=== PATIENT | female | born 1945 | race Hispanic/Latino ===

== ENCOUNTER 2019-06-21 12:26 | Emergency (ER) | payer MEDICARE ==
[2019-06-21] MEDS ORDERED: MORPHINE 4 MG/1 ML INJ IV ONE ×2 (13:32→14:34)
[2019-06-21] MEDS ORDERED: KETOROLAC 30 MG/1 ML INJ IV ONE (13:32)
[2019-06-21] MEDS ORDERED: ONDANSETRON 4 MG/2 ML INJ IV ONE (13:32)
--- NOTE | 2019-06-21 14:41 | XRay Report ---
RIGHT WRIST 2 VIEWS INDICATION / CLINICAL INFORMATION: Right wrist pain after fall. COMPARISON: None available. FINDINGS: This exam is limited by the lack of a true lateral view. BONES and JOINT(S): There is a transverse fracture through the distal radial metaphysis with overlapp ing segments. An avulsion fracture of the ulnar styloid is also noted. No dislocation is seen. There is generalized osteopenia without significant arthritis. SOFT TISSUES: No significant abnormality. ADDITIONAL FINDINGS: None. IMPRESSION: Right wrist fractures as above. Signer Name: Hay Welch MD Signed: 06/21/2019 2:36 PM Workstation Name: [id number]
--- NOTE | 2019-06-21 14:42 | XRay Report ---
RIGHT SHOULDER 1 VIEW INDICATION / CLINICAL INFORMATION: Right shoulder pain after fall. COMPARISON: None available. FINDINGS: This study is limited by lack of multiple views of the right shoulder. BONES and JOINT(S): Generalized osteopenia is seen with an impacted humeral neck fracture. No disloca tion is identified. No significant arthritis is seen. SOFT TISSUES: No significant abnormality. ADDITIONAL FINDINGS: None. IMPRESSION: Right humeral fracture as above. Signer Name: Hay Welch MD Signed: 06/21/2019 2:37 PM Workstation Name: [id number]
[2019-06-21] MEDS ORDERED: HYDROmorphone 1 MG/1 ML INJ IV ONE ×2 (15:19→16:02)
--- NOTE | 2019-06-21 15:36 | Emergency Department Report ---
ED Extremity Problem HPI - General Chief complaint: Extremity Injury, Upper Stated complaint: R ARM AND SHOULDER PAIN Time Seen by Provider: 06/21/19 13:13 Source: patient, EMS Mode of arrival: Stretcher Limitations: No Limitations - History of Present Illness Initial comments: Patient is a 74-year-old female who is presenting with right arm pain. Patient states she was walking to her front door and she tripped and fell. Patient reached out with outstretched hand. Patient has pain at the shoulder as well as the wrist. Patient is broken her right wrist in the past and did not receive surgery. Patient states pain is 9 out of 10 severity is worse with movement. Slightly better with rest. Severity scale (0 -10): 10 - Related Data Home Medications Medication Instructions Recorded Confirmed Last Taken Atorvastatin (Nf) [Lipitor] 10 mg PO QHS 03/30/13 01/21/14 01/20/14 Nortriptyline (Nf) [Pamelor (Nf)] 75 mg PO QDAY 03/30/13 01/21/14 01/20/14 Omeprazole [Prilosec] 40 mg PO QDAY 03/30/13 01/21/14 01/20/14 Losartan [Cozaar] 1 tab PO DAILY 08/24/13 01/21/14 01/20/14 Previous Rx's Medication Instructions Recorded Last Taken Type Clopidogrel [Plavix] 75 mg PO QDAY #30 tablet 04/02/13 01/18/14 Rx Donepezil [Aricept] 5 mg PO QHS #30 tablet 04/02/13 01/20/14 Rx Spironolactone [Aldactone] 25 mg PO QDAY #30 tablet 09/01/13 01/20/14 Rx Ibuprofen [Motrin 600 MG tab] 600 mg PO Q8H PRN #20 tablet 06/21/19 Unknown Rx Oxycodone HCl/Acetaminophen 1 each PO Q6HR PRN #12 tablet 06/21/19 Unknown Rx [Percocet 7.5/325 mg] Allergies Allergy/AdvReac Type Severity Reaction Status Date / Time No Known Allergies Allergy Verified 08/24/13 16:16 ED Review of Systems ROS: Stated complaint: R ARM AND SHOULDER PAIN Other details as noted in HPI Comment: All other systems reviewed and negative ED Past Medical Hx - Past Medical History Hx Hypertension: Yes Hx Heart Attack/AMI: No Hx Congestive Heart Failure: No Hx Deep Vein Thrombosis: No Hx Pulmonary Embolism: No Hx Renal Disease: No Hx Sickle Cell Disease: No Hx Arthritis: Yes (back) Hx Seizures: No Hx Kidney Stones: No Hx Asthma: No Hx COPD: No Hx Tuberculosis: No Hx Dementia: Yes (mild dementia) Hx HIV: No Additional medical history: crohns - Surgical History Hx Coronary Stent: No Hx Pacemaker: No Hx Internal Defibrillator: No Hx Appendectomy: Yes Hx Breast Surgery: Yes - Social History Smoking Status: Current Every Day Smoker - Medications Home Medications: Home Medications Medication Instructions Recorded Confirmed Last Taken Type Atorvastatin (Nf) [Lipitor] 10 mg PO QHS 03/30/13 01/21/14 01/20/14 History Nortriptyline (Nf) [Pamelor (Nf)] 75 mg PO QDAY 03/30/13 01/21/14 01/20/14 H istory Omeprazole [Prilosec] 40 mg PO QDAY 03/30/13 01/21/14 01/20/14 History Clopidogrel [Plavix] 75 mg PO QDAY #30 tablet 04/02/13 01/21/14 01/18/14 Rx Donepezil [Aricept] 5 mg PO QHS #30 tablet 04/02/13 01/21/14 01/20/14 Rx Losartan [Cozaar] 1 tab PO DAILY 08/24/13 01/21/14 01/20/14 History Spironolactone [Aldactone] 25 mg PO QDAY #30 tablet 09/01/13 01/21/14 01/20/14 Rx Ibuprofen [Motrin 600 MG tab] 600 mg PO Q8H PRN #20 tablet 06/21/19 Unknown Rx Oxycodone HCl/Acetaminophen 1 each PO Q6HR PRN #12 tablet 06/21/19 Unknown Rx [Percocet 7.5/325 mg] ED Physical Exam - General Limitations: No Limitations General appearance: alert, in no apparent distress - Head Head exam: Present: atraumatic, normocephalic - Eye Eye exam: Present: normal appearance, PERRL, EOMI - ENT ENT exam: Present: mucous membranes moist - Neck Neck exam: Present: normal inspection - Respiratory Respiratory exam: Present: normal lung sounds bilaterally. Absent: respiratory distress, wheezes, rales, rhonchi - Cardiovascular Cardiovascular Exam: Present: regular rate, normal rhythm. Absent: systolic murmur, diastolic murmur, rubs, gallop - GI/Abdominal GI/Abdominal exam: Present: soft, normal bowel sounds. Absent: distended, tenderness, guarding, rebound - Extremities Exam Extremities exam: Present: normal inspection - Back Exam Back exam: Present: normal inspection - Neurological Exam Neurological exam: Present: alert, oriented X3 - Psychiatric Psychiatric exam: Present: normal affect, normal mood - Skin Skin exam: Present: warm, dry, intact, normal color. Absent: rash ED Course Vital Signs 06/21/19 06/21/19 06/21/19 14:38 14:41 14:46 Temperature 98.1 F Pulse Rate 86 Respiratory 18 16 Rate Blood Pressure 161/76 [Left] O2 Sat by Pulse 98 97 97 Oximetry ED Medical Decision Making - Radiology Data Ordering Physician: DEYVI BHAGAT MD Date of Service: 06/21/19 Procedure(s): XR shoulder 1V RT Accession Number(s): [id number] cc: DEYVI BHAGAT MD Fluoro Time In Minutes: RIGHT SHOULDER 1 VIEW INDICATION / CLINICAL INFORMATION: Right shoulder pain after fall. COMPARISON: None available. FINDINGS: This study is limited by lack of multiple views of the right shoulder. BONES and JOINT(S): Generalized osteopenia is seen with an impacted humeral neck fracture. No dislocation is identified. No significant arthritis is seen. SOFT TISSUES: No significant abnormality. ADDITIONAL FINDINGS: None. IMPRESSION: Right humeral fracture as above. Signer Name: Hay Welch MD Signed: 06/21/2019 2:37 PM Workstation Name: [id number] Ordering Physician: DEYVI BHAGAT MD Date of Service: 06/21/19 Procedure(s): XR wrist 2V RT Accession Number(s): [id number] cc: DEYVI BHAGAT MD Fluoro Time In Minutes: RIGHT WRIST 2 VIEWS INDICATION / CLINICAL INFORMATION: Right wrist pain after fall. COMPARISON: None available. FINDINGS: This exam is limited by the lack of a true lateral view. BONES and JOINT(S): There is a transverse fracture through the distal radial metaphysis with overlapping segments. An avulsion fracture of the ulnar styloid is also noted. No dislocation is seen. There is generalized osteopenia without significant arthritis. SOFT TISSUES: No significant abnormality. ADDITIONAL FINDINGS: None. IMPRESSION: Right wrist fractures as above. Signer Name: Hay Welch MD Signed: 06/21/2019 2:36 PM Workstation Name: [id number] - Medical Decision Making Discussed the case with Dr. Bautista who did look at the patient's sounds. Patient's distal radius fracture likely is old. I did do a attempt a hematoma block and to see if I can get better alignment in the bowels were actually likely fused in a malunion position. Patient's proximal humeral fracture is new. Patient was placed in a shoulder immobilizer. Patient is given medication for pain control be discharged home follow-up with orthopedics. Critical care attestation.: If time is entered above; I have spent that time in minutes in the direct care of this critically ill patient, excluding procedure time. ED Disposition Clinical Impression: Humeral surgical neck fracture Qualifiers: Encounter type: initial encounter Fracture type: closed Fracture morphology: 2- part Fracture alignment: nondisplaced Laterality: right Qualified Code(s): S42.224A - 2-part nondisplaced fracture of surgical neck of right humerus, initial encounter for closed fracture Wrist fracture Qualifiers: Encounter type: initial encounter Fracture type: closed Laterality: right Qualified Code(s): S62.101A - Fracture of unspecified carpal bone, right wrist, initial encounter for closed fracture Disposition: DC-01 TO HOME OR SELFCARE Is pt being admited?: No Does the pt Need Aspirin: No Condition: Stable Instructions: Arm Fracture in Adults (ED), Wrist Fracture in Adults (ED), RICE Therapy (ED) Referrals: JESSIKA BAUTISTA MD [Staff Physician] - 3-5 Days Time of Disposition: 15:37
[2019-06-21 16:16] VITALS: BP 126/71
== END 2019-06-21 16:17 | disposition home or self-care (01) ==
LOC: ED 12:26
DX: S62.101A Fracture of unspecified carpal bone, right wrist, initial encounter for closed fracture (principal); I10 Essential (primary) hypertension; M19.90 Unspecified osteoarthritis, unspecified site; Z90.49 Acquired absence of other specified parts of digestive tract; Z98.890 Other specified postprocedural states; F17.200 Nicotine dependence, unspecified, uncomplicated; Z79.1 Long term (current) use of non-steroidal anti-inflammatories (NSAID); Z79.899 Other long term (current) drug therapy; W19.XXXA Unspecified fall, initial encounter; Y93.89 Activity, other specified; Y92.89 Other specified places as the place of occurrence of the external cause; Y99.8 Other external cause status
CPT/HCPCS: 29105; 73020; 73100; 96374; 96375; 96376; 99284; J1170; J1885; J2270; J2405